=== PATIENT | female | born 1970 | race Caucasian/White ===

== ENCOUNTER 2025-08-13 07:55 | Outpatient (AMB) | payer OTHER, SELFPAY ==
--- OUTSIDE RECORDS SUMMARY | 2025-08-13 07:58 | XMS_ITS | Clinical Summary ---
Author Organization [facility] Address [address] [place] [address] Phone Care Team Providers Care Stone Engraver Name Role Phone MercedezJanki Primary Care Provider [phone] Allergies No known active allergies Medications citalopram (CeleXA) 10 mg tablet Take 1 tablet (10 mg total) by mouth 1 (one) time each day. 30 each 5 5 Active acetaminophen (Tylenol 8 Hour) 650 mg 8 hr tablet Take 1 tablet (650 mg total) by mouth every 8 (eight) hours if needed for mild pain. Do not crush, chew, or split. 30 tablet 5 10/03/19 26 Active diclofenac (VOLTAREN) 1 % topical gel Apply 4 g topically 4 (four) times a day. 500 g 1 5 Active losartan (Cozaar) 25 mg tablet Take 1 tablet (25 mg total) by mouth 1 (one) time each day. 90 each 1 5 10/03/19 26 Active cyanocobalamin (Vitamin B-12) 500 mcg tablet Take 1 tablet (500 mcg total) by mouth 1 (one) time each day. 90 each 1 5 10/03/19 26 Active Hospital, Clinic, or Other Facility Administered Medication Ordered Dose Route Frequency Start Date End Date Status lidocaine (PF) (XYLOCAINE-MPF) 1 % injection 0.5 mLIndications:Capsul itis of left foot .5 mL Once PRN Procedure 07/22/2025 07/22/2025 Ended triamcinolone acetonide (KENALOG-40) 40 mg/mL injection 40 mgIndications:Capsul itis of left foot 40 mg Once PRN Procedure 07/22/2025 07/22/2025 Ended Active Problems Problem Noted Date Diagnosed Date HTN (hypertension), benign 12/11/2024 Obesity (BMI 30-39.9) 12/11/2024 Gastroesophageal reflux disease 06/23/2020 Overview (11/17/2024): DX:Gastroesophageal reflux disease Backache 09/24/2013 Overview (11/17/2024): 1213-mri small left paramed l4-5 disc compressing left l5 nerve root.no central neuroforaminal stenosis Mild deg disc.seen by PVSS Anxiety 11/11/2009 Overview (11/17/2024): Takes occasional lorazepam; also on lexapro Depression 11/11/2009 Overview (11/17/2024): Takes lexapro Bunion 03/10/2007 Encounters Date Type Department Care Team Description 07/22/2025 3:00 PM EDT Office Visit Orthopedic Surgery - [place] [address] [phone] Christoph Harrison, DPM Pain in both feet (Primary Dx); Arthritis of both feet; Bunion, left; Capsulitis of left foot 07/07/2025 2:15 PM EDT Consult Orthopedic Surgery [facility] [address] [phone] Christoph Harrison, DPM Pain in both feet (Primary Dx); Lumbosacral radiculopathy; Arthritis of both feet; Bunion, left; Capsulitis of left foot from Last 3 Months Surgical History Surgery Date Site/Laterality Comments OTHER SURGICAL HISTORY PROCEDURE: ARTHROSCOPY PROCEDURE NEC; COMMENT: left knee - 2004; s/p fall, ACL and MCL CHOLECYSTECTOMY PROCEDURE: HISTORICAL CHOLECYSTECTOMY OTHER SURGICAL HISTORY 11/2013 PROCEDURE: DISKECTOMY LUMBAR ADDTNL SP; COMMENT: L4-5 micro diskectomy BUNIONECTOMY PROCEDURE: BUNION SURGERY, SIMPLE REMOVAL Medical History Medical History Date Comments Gastroesophageal reflux disease 06/23/2020 DX:Gastroesophageal reflux disease HTN (hypertension), benign 12/11/2024 Anxiety Depression Family History Medical History Relation Name Comments Breast cancer Mother dx age 70's, h ad lumpectomy and masectomy. Relation Name Status Comments Father Other adopted so no i seamus Mother Other Social History Tobacco Use Types Packs/Day Years Used Date Smoking Tobacco: Never Smokeless Tobacco: Never Alcohol Use Standard Drinks/Week Comments Yes 0 (1 standard drink = 0.6 oz pur e alcohol) Interpersonal Safety Answer Date Record ed Physical Abuse Unrecognized value 12/18/2024 Verbal Abuse Unrecognized value 12/18/2024 Comments No Sex and Gender Information Value Date Recorded Sex Assigned at Female 12/18/2024 11:19 AM EDT Legal Sex Female 1:35 AM EST Gender Identity Female 12/18/2024 11:19 AM EDT Sexual Orientation Straight 12/18/2024 11 :19 AM EDT Obstetrics History Last Filed Vital Signs Vital Sign Reading Time Taken Comments Blood Pressure 104/72 04/06/2025 12:54 PM EDT Pulse 68 04/06/2025 12:54 PM EDT Temperature 36.3 C (97.3 F) 12/18/2024 11:54 AM EDT Respiratory Rate 16 04/06/2025 12:54 PM EDT Oxygen Saturation 97% 12/18/2024 1:02 PM EDT Inhaled Oxygen Concentration - - Weight 96.6 kg (213 lb) 04/06/2025 12:54 PM EDT Height 170.2 cm (5' 7 ) 12/18/2024 11:54 AM EDT Body Mass Index 33.36 12/18/2024 11:54 AM EDT Plan of Treatment Upcoming Encounters Date Type Department Care Team (Late st Contact Info) Description 08/24/2025 9:15 AM EST Office Visit Orthopedic Surgery - [place] [address] [phone] Christoph Harrison, ERMA 175 [facility] [address] [place] [id number] Health Maintenance Due Date Last Done Comments DTaP,Tdap,and Td Vaccines (1 - Tdap) 1990 Hepatitis B Vaccines (1 of 3 - 19+ 3-dose series) 1990 Cervical Cancer Screening: Pap Smear 05/14/2015 05/14/2012, 05/14/2012 Pneumococcal Vaccine: 50+ Years (1 of 1 - PCV) 2021 Zoster Vaccines (1 of 2) 2021 HIV Screening 08/26/2022 Social Influencers of Health Screening 08/26/2022 Breast Cancer Screening 07/21/2023 07/21/2021 COVID-19 Vaccine ( season) 2025 01/28/2021, 12/27/2020 Influenza Vaccine (#1) 2025 Hypertension/CHF/CAD Annual BMP Blood Test 04/06/2026 04/06/2025, 12/11/2024, 07/10/2024, Additional history exists Cholesterol Screening (Lipid Panel) 04/06/2030 04/06/2025, 10/09/2023 Colorectal Cancer Screening: Colonoscopy 12/18/2034 12/18/2024 RSV Immunization Adult Patients (1 - 1-dose 75+ series) 2046 Hepatitis C Screening Completed 07/10/2024 Depression Screening Completed 12/10/2024 HIB Vaccines Aged Out No longer eligi ble based on patient's age to complete this topic HPV Vaccines Aged Out No longer eligi ble based on patient's age to complete this topic Hepatitis A Vaccines Aged Out No long er eligible based on patient's age to complete this topic IPV Vaccines Aged Out No longer eligi ble based on patient's age to complete this topic MMR Vaccines Aged Out No longer eligi ble based on patient's age to complete this topic Meningococcal ACWY Vaccine Aged Out N o longer eligible based on patient's age to complete this topic Meningococcal B Vaccine Aged Out No l onger eligible based on patient's age to complete this topic RSV Immunization Patients Under 20 months Aged Out No longer eligible based on patient's age to complete this topic Varicella Vaccines Aged Out No longer eligible based on patient's age to complete this topic Procedures Procedure Name Priority Date/Time Associated Diagnosis Comments INJECTION TENDON OR LIGAMENT Routine 07/22/2025 3:00 PM EDT Capsulitis of left foot INJECTION TENDON OR LIGAMENT Routine 07/07/2025 2:15 PM EDT Capsulitis of left foot COMPREHENSIVE METABOLIC PANEL Routine 04/06/2025 1:18 PM EDT HTN (hypertension), benign LIPID PANEL WITH REFLEX TO DIRECT LDL Routine 04/06/2025 1:18 PM EDT HTN (hypertension), benign COLONOSCOPY Routine 12/18/2024 12:41 PM EDT Colon cancer screening HEPATITIS C SCREENING Routine 07/10/2024 ZAN SCREENING DIGITAL Routine 07/21/2021 2:51 PM EDT Encounter for screening mammogram for malignant neoplasm of breast HPV Routine 05/14/2012 from Last 3 Months or Most Recently Relevant to Health Maintenance Results * Injection tendon or ligament (07/22/2025 3:00 PM EDT) Narrative Christoph Harrison DPM - 07/22/2025 3:00 PM EDT Christoph Harrison DPM 07/22/2025 5:42 PM Injection tendon or ligament Indications: pain Details: 25 G needle Medications: 0.5 mL lidocaine (PF) 1 %; 40 mg triamcinolone acetonide 40 mg/mL Informed Consent: Laterality: Left us Christoph Harrison DPM IN CLINIC/BEDSIDE ORDERABLE S Final Result * Injection tendon or ligament (07/07/2025 2:15 PM EDT) Narrative Christoph Harrison DPM - 07/07/2025 2:15 PM EDT Christoph Harrison DPM 07/07/2025 5:39 PM Injection tendon or ligament Indications: pain Details: 25 G needle Medications: 0.5 mL lidocaine (PF) 1 %; 40 mg triamcinolone acetonide 40 mg/mL Informed Consent: Laterality: Left us Christoph Harrison DPM IN CLINIC/BEDSIDE ORDERABLE S Final Result * Lipid panel with reflex to direct LDL (04/06/2025 1:18 PM EDT) Cholesterol 175 0 - 200 mg/dL LAB CHEMISTRY METHOD 04/06/2025 5:15 PM EDT [facility] Triglycerides 124 0 - 150 mg/dL LAB CHEMISTRY METHOD 04/06/2025 5:15 PM EDT [facility] HDL 50 >=40 mg/dL LAB CHEMISTRY METHOD 04/06/2025 5:15 PM EDT [facility] LDL Calculated 100 0 - 100 mg/dL LAB CHEMISTRY METHOD 04/06/2025 5:15 PM EDT [facility] VLDL Cholesterol Geoff 24.8 mg/dL LAB CHEMISTRY METHOD 04/06/2025 5:15 PM EDT [facility] Non HDL Chol. (LDL+VLDL) 125 <145 mg/dL LAB CHEMISTRY METHOD 04/06/2025 5:15 PM EDT [facility] Chol/HDL Ratio 3.5 0.0 - 4.4 LAB CHEMISTRY METHOD 04/06/2025 5:15 PM EDT [facility] Blood Venous blood specimen / Unknown Venipuncture / Unknown 04/06/2025 1:18 PM EDT 04/06/2025 1:18 PM EDT Marcos SCHROEDER LAB BLOOD ORDERABLES Fi nal Result [facility] [address] [place] [address], [place] [phone] * Comprehensive metabolic panel (04/06/2025 1:18 PM EDT) Sodium 139 133 - 145 mmol/L LAB CHEMISTRY METHOD 04/06/2025 5:15 PM EDT [facility] Potassium 4.1 3.5 - 5.5 mmol/L LAB CHEMISTRY METHOD 04/06/2025 5:15 PM [facility] Chloride 108 96 - 110 mmol/L LAB CHEMISTRY METHOD 04/06/2025 5:15 PM [facility] CO2 24 21 - 32 mmol/L LAB CHEMISTRY METHOD 04/06/2025 5:15 PM [facility] Anion Gap 7 3 - 11 LAB CHEMISTRY METHOD 04/06/2025 5:15 PM [facility] Glucose 76 70 - 100 mg/dL LAB CHEMISTRY METHOD 04/06/2025 5:15 PM [facility] BUN 9 5 - 25 mg/dL LAB CHEMISTRY METHOD 04/06/2025 5:15 PM [facility] Creatinine 0.66 0.50 - 1.10 mg/dL LAB CHEMISTRY METHOD 04/06/2025 5:15 PM [facility] eGFR 105 >=60 mL/min/1. 73m2 LAB CHEMISTRY METHOD 04/06/2025 5:15 PM [facility] Comment:Calculation based on the Chronic Kidney Disease Epidemiology Collaboration (CKD-EPI) equation refit without adjustment for race. BUN/Creatinine Ratio 13.6 LAB CHEMISTRY METHOD 04/06/2025 5:15 PM [facility] Calcium 9.0 8.5 - 10.5 mg/dL LAB CHEMISTRY METHOD 04/06/2025 5:15 PM [facility] AST (SGOT) 11 10 - 42 unit/L LAB CHEMISTRY METHOD 04/06/2025 5:15 PM [facility] ALT (SGPT) 19 10 - 60 unit/L LAB CHEMISTRY METHOD 04/06/2025 5:15 PM [facility] Alkaline Phosphatase 73 42 - 121 unit/L LAB CHEMISTRY METHOD 04/06/2025 5:15 PM [facility] Total Protein 7.2 6.0 - 8.0 g/dL LAB CHEMISTRY METHOD 04/06/2025 5:15 PM EDT [facility] Albumin 3.9 3.2 - 5.0 g/dL LAB CHEMISTRY METHOD 04/06/2025 5:15 PM EDT [facility] Total Bilirubin 0.6 0.0 - 1.4 mg/dL LAB CHEMISTRY METHOD 04/06/2025 5:15 PM EDT [facility] Blood Venous blood specimen / Unknown Venipuncture / Unknown 04/06/2025 1:18 PM EDT 04/06/2025 1:18 PM EDT us Marcos SCHROEDER LAB BLOOD ORDERABLES Fi nal Result [facility] [address] [place] [address], [place] [phone] * COLONOSCOPY Anesthesia - MAC; [facility] ENDOSCOPY (12/18/2024 12:41 PM EDT) Anatomical Region Laterality Modality Endoscopy 12/18/2024 12:2 1 PM EDT Impressions 12/18/2024 12:43 PM EDT - Hemorrhoids found on perianal exam. - The examination was otherwise normal on direct and retroflexion views. - No specimens collected. Recommendation: - - Discharge patient to home. - High fiber diet. - Continue present medications. - Await pathology results. - Repeat colonoscopy for surveillance based on pathology results. Narrative 12/18/2024 12:43 PM EDT [facility] GI Patient Name: Helen Esquivel Procedure Date: 12/18/2024 12:21 PM Date of : 1970 Age: 54 Gender: Female Note Status: Finalized Attending MD: Delores Tellez DO, [id number] Procedure Date No Time: 12/18/2024 Procedure: Colonoscopy Indications: Screening for colorectal malignant neoplasm Providers: Delores Tellez DO Referring MD: Janki Newsome DO Medicines: Monitored Anesthesia Care Complications: No immediate complications. Estimated blood loss: Minimal. Estimated Blood Loss: Estimated blood loss was minimal. Procedure: Pre-Anesthesia Assessment: - - Prior to the procedure, a History and Physical was performed, and patient medications and allergies were reviewed. The patient is competent. The risks and benefits of the procedure and the sedation options and risks were discussed with the patient. All questions were answered and informed consent was obtained. Patient identification and proposed procedure were verified by the physician, the nurse, the anesthesiologist, the well point pumping supervisor and the mold maintenance technician in the pre-procedure area in the endoscopy suite. Mental Status Examination: alert and oriented. Airway Examination: normal oropharyngeal airway and neck mobility. Respiratory Examination: clear to auscultation. CV Examination: normal. Prophylactic Antibiotics: The patient does not require prophylactic antibiotics. Prior Anticoagulants: The patient has taken no anticoagulant or antiplatelet agents. ASA Grade Assessment: II - A patient with severe systemic disease. After reviewing the risks and benefits, the patient was deemed in satisfactory condition to undergo the procedure. The anesthesia plan was to use monitored anesthesia care (MAC). Immediately prior to administration of medications, the patient was re-assessed for adequacy to receive sedatives. The heart rate, respiratory rate, oxygen saturations, blood pressure, adequacy of pulmonary ventilation, and response to care were monitored throughout the procedure. The physical status of the patient was re-assessed after the procedure. After I obtained informed consent, the scope was passed under direct vision. Throughout the procedure, the patient's blood pressure, pulse, and oxygen saturations were monitored continuously. The Olympus Pediatric Colonoscope was introduced through the anus and advanced to the cecum, identified by appendiceal orifice and ileocecal valve. The colonoscopy was performed without difficulty. The patient tolerated the procedure well. The quality of the bowel preparation was good. Findings: Hemorrhoids were found on perianal exam. The exam was otherwise without abnormality on direct and retroflexion views. Procedure Code(s): --- Professional --- G0121, Colorectal cancer screening; colonoscopy on individual not meeting criteria for high risk Diagnosis Code(s): --- Professional --- Z12.11, Encounter for screening for malignant neoplasm of colon K64.9, Unspecified hemorrhoids CPT copyright 2020 [employer]. All rights reserved. The codes documented in this report are preliminary and upon software development manager review may be revised to meet current compliance requirements. DELORES Tellez DO 12/18/2024 12:43:26 PM This report has been signed electronically.Delores Tellez DO Number of Addenda: 0 Note Initiated On: 12/18/2024 12:21 PM Scope Withdrawal Time: 0 hours 6 minutes 6 seconds Scope In: 12:31:03 PM Scope Out: 12:42:21 PM Endoscopy Department at [facility] - [address] [place] [phone] Procedure Note Delores Tellez DO - 12/18/2024 [facility] GI Patient Name: Helen Esquivel Procedure Date: 12/18/2024 12:21 PM Date of : 1970 Age: 54 Gender: Female Note Status: Finalized Attending MD: Delores Tellez DO, [id number] Procedure Date No Time: 12/18/2024 Procedure: Colonoscopy Indications: Screening for colorectal malignant neoplasm Providers: Delores Tellez DO Referring MD: Janki Newsome DO Medicines: Monitored Anesthesia Care Complications: No immediate complications. Estimated blood loss: Minimal. Estimated Blood Loss: Estimated blood loss was minimal. Procedure: Pre-Anesthesia Assessment: - - Prior to the procedure, a History and Physicalwas performed, and patient medications and allergieswere reviewed. The patient is competent. The risks and benefits of the procedure and the sedation optionsand risks were discussed with the patient. Allquestions were answered and informed consent was obtained. Patient identification and proposed procedure were verified by the physician, the nurse, the anesthesiologist, the well point pumping supervisor and thetechnician in the pre-procedure area in the endoscopy suite. Mental Status Examination: alert and oriented.Airway Examination: normal oropharyngeal airway and neck mobility. Respiratory Examination: clear to auscultation. CV Examination: normal. Prophylactic Antibiotics: The patient does not requireprophylactic antibiotics. Prior Anticoagulants: The patient has taken no anticoagulant or antiplatelet agents. ASA Grade Assessment: II - A patient with severesystemic disease. After reviewing the risks and benefits,the patient was deemed in satisfactory condition to undergo the procedure. The anesthesia plan was touse monitored anesthesia care (MAC). Immediately priorto administration of medications, the patient was re-assessed for adequacy to receive sedatives. The heart rate, respiratory rate, oxygen saturations, blood pressure, adequacy of pulmonary ventilation,and response to care were monitored throughout the procedure. The physical status of the patient was re-assessed after the procedure. After I obtained informed consent, the scope was passed under direct vision. Throughout theprocedure, the patient's blood pressure, pulse, and oxygen saturations were monitored continuously. TheOlympus Pediatric Colonoscope was introduced through theanus and advanced to the cecum, identified byappendiceal orifice and ileocecal valve. The colonoscopy was performed without difficulty. The patient tolerated the procedure well. The quality of the bowel preparation was good. Findings: Hemorrhoids were found on perianal exam. The exam was otherwise without abnormality ondirect and retroflexion views. Procedure Code(s): --- Professional --- G0121, Colorectal cancer screening; colonoscopy on individual not meeting criteria for high risk Diagnosis Code(s): --- Professional --- Z12.11, Encounter for screening for malignantneoplasm of colon K64.9, Unspecified hemorrhoids CPT copyright 2020 [employer]. All rights reserved. The codes documented in this report are preliminary and upon software development manager reviewmay be revised to meet current compliance requirements. DELORES Tellez DO 12/18/2024 12:43:26 PM This report has been signed electronically.Delores Tellez DO Number of Addenda: 0 Note Initiated On: 12/18/2024 12:21 PM Scope Withdrawal Time: 0 hours 6 minutes 6 seconds Scope In: 12:31:03 PM Scope Out: 12:42:21 PM Endoscopy Department at [facility] - [address] [place] [phone] IMPRESSION: - Hemorrhoids found on perianal exam. - The examination was otherwise normal on directand retroflexion views. - No specimens collected. Recommendation: - - Discharge patient to home. - High fiber diet. - Continue present medications. - Await pathology results. - Repeat colonoscopy for surveillance based on pathology results. Delores Tellez DO GI~PROCEDURE ORDERABLES Final Re sult * Hepatitis C Screening (07/10/2024) Hepatitis C Screening Abstracted Historical Provider HEALTH MAINTENANCE Final Result * ZAN SCREENING DIGITAL (07/21/2021 2:51 PM EDT) Anatomical Region Laterality Modality Mammography 07/21/2021 2:09 PM EDT Narrative 07/21/2021 2:51 PM EDT [facility] Diagnostic Imaging Department [address] [place] [id number] Patient: HELEN ESQUIVEL /Age/Sex: 1970 - 50 - F Unit#: [id number] Location/Status: SPDIMA/REG CLI Mnemonic/Ordering Site: [facility] Ordering Physician: CHALO RODRÍGUEZ MD Zan Screening Digital - 07/21/21 - 143 EXAM: [facility] Screening Digital EXAM DATE AND TIME: 07/21/2021 2:34 PM HISTORY: Screening. Mother had breast carcinoma at age 50. COMPARISON: 07/29/13, 07/15/13, 06/25/12, 04/27/11 outside studies. TECHNIQUE: CC and MLO views of both breasts were obtained using full field digital mammography. Bilateral digital breast tomosynthesis was performed in the MLO projection. Computer aided detection with the MC2 7.2-H was employed. TISSUE DENSITY: c. The breasts are heterogeneously dense, which may obscure small masses. FINDINGS: A 10 mm circumscribed nodule is present in the 12:00 retroareolar area of the right breast, without associated microcalcifications. Targeted ultrasound is recommended for further assessment. No grouped microcalcifications or areas of architectural distortion are seen. The skin and vascularity are unremarkable. IMPRESSION: 1. 10 mm retroareolar nodule in the right breast, for which targeted ultrasound is recommended. The patient will be called back. 2. Stable mammographic appearance of the left breast. No evidence of malignancy is seen. BI-RADS: Category 0: Incomplete - Need Additional Imaging Evaluation RECOMMENDATION(S): 1: Ultrasound follow-up RIGHT [id number], [id number], [id number] Dictating Physician: MARLENE GONZALEZ MD Electronically Signed by: MARLENE GONZALEZ MD Dic Date/Time: 07/21/21 1449 Sign date/Time: 07/21/21 1451 Procedure Note Marlene Gonzalez MD - 09/12/2022 [facility] Diagnostic Imaging Department [address] [place] [address] Patient: HELEN ESQUIVEL /Age/Sex: 1970 - 50 - F Unit#: [id number] Location/Status: [facility] Mnemonic/Ordering Site: [facility] Ordering Physician: CHALO RODRÍGUEZ MD [facility] Screening Digital - 07/21/21 - 1432 EXAM: [facility] Screening Digital EXAM DATE AND TIME: 07/21/2021 2:34 PM HISTORY: Screening. Mother had breast carcinoma at age 50. COMPARISON: 07/29/13, 07/15/13, 06/25/12, 04/27/11 outside studies. TECHNIQUE: CC and MLO views of both breasts were obtained using fullfield digital mammography. Bilateral digital breast tomosynthesis was performedin the MLO projection. Computer aided detection with the MC2 7.2-Hwas employed. TISSUE DENSITY: c. The breasts are heterogeneously dense, which mayobscure small masses. FINDINGS: A 10 mm circumscribed nodule is present in the 12:00 retroareolar area ofthe right breast, without associated microcalcifications. Targeted ultrasoundis recommended for further assessment. No grouped microcalcifications or areas of architectural distortion areseen. The skin and vascularity are unremarkable. IMPRESSION: 1. 10 mm retroareolar nodule in the right breast, for which targetedultrasound is recommended. The patient will be called back. 2. Stable mammographic appearance of the left breast. No evidence ofmalignancy is seen. BI-RADS: Category 0: Incomplete - Need Additional Imaging Evaluation RECOMMENDATION(S): 1: Ultrasound follow-up RIGHT [id number], [id number], [id number] Dictating Physician: MARLENE GONZALEZ MD Electronically Signed by: MARLENE GONZALEZ MD Dic Date/Time: 07/21/21 1449 Sign date/Time: 07/21/21 1451 Chalo Rodríguez MD IMG BI PROCEDURES Final Result * Cervical Cancer Screening: HPV (05/14/2012) Cervical Cancer Screening: HPV No Interpretation , Abstracted Historical Provider HEALTH MAINTENANCE Final Result from Last 3 Months or Most Recently Relevant to Health Maintenance Insurance [facility] Care Teams Stone Engraver Relationship Specialty Start Date End Date Janki Newsome DO [address] [facility] [place] [address] PCP - General 07/10/23
--- NOTE | 2025-08-13 13:20 | A.OFFVIS_ITS ---
VS Expanded 08/13/25 13:33 Height 5 ft 7 in Weight 213 lb 8 oz BMI 33.4 Body Fat % 44.7 Body Fat Mass 95.4 Fat Free Mass 118.2 Visceral Fat Rating 11 Body Water % 39.3 Body Water Mass 84 Basal Metabolic Rate/Score 1,652 Intake Visit Reasons: [employer] [facility] BMI 33.5 Allergies No Known Allergies Allergy (Verified 08/13/25 13:21) Medication List - Last Reconciled 08/13/25 by Rudy Flower MD [b12 PO] [Fluoxetine PO] [losartan PO] HPI HPI [employer] [facility] BMI 33.5: Details: Start time: 1.15pm, End time: 1.47pm ?I spent 27 minutes speaking with the patient on the phone plus an additional 5 minutes reviewing and updating records for a total of 32 minutes HPI Comments Details: Previous weight loss efforts (self diets and exercise) Wakes up: 6am, Sleeps: 10pm Breakfast: skips Lunch: 12pm-1pm (ham sandwich, grapes) Dinner: 6-7pm (meat, salad, rice or potatoes) Snacks: 9am (grapes), 4pm (crackers with cheese) Exercise: none Beverages: Coffee: none, Tea: none, Soda: diet coke or [place] water, Juice: none, ETOH: 1/wk (1 glass) PFSH Medical History (Updated 08/13/25 @ 13:38 by Rudy Flower MD) Anxiety Depression Hypertension BMI 33.0-33.9,adult Obesity Surgical History (Updated 08/13/25 @ 13:23 by Rudy Flower MD) History of laparoscopic cholecystectomy Hx of cholecystectomy Hx of foot surgery Hx of knee surgery History of back surgery Family History (Updated 06/04/25 @ 14:03 by Blanca West CMA) Mother Breast cancer Father No problems noted. Daughter No problems noted. Social History (Updated 06/04/25 @ 14:03 by Blanca West CMA) Alcohol intake: current Alcohol intake frequency: holidays/special occasions only Patient Tobacco Use Status: Never used Tobacco Telehealth Telehealth Telehealth Platform: Telephone Location of provider rendering services: practice address Location of patient: address on file Patient Identification confirmed using: Name, : Yes Telehealth method: voice only Patient verbally consented to treatment: Yes Patient verbally consented to billing insurance company: Yes Patient informed of any privacy concerns related to visit: Yes Minutes spent on Phone/Video with Pt.: 32 Assessment & Plan Assessment & Plan (1) Obesity: Code(s): E66.9 - Obesity, unspecified Category: Medical Qualifiers: Obesity type: due to excess calories Obesity classification: adult class 1 (BMI 30 - 34.9) Serious obesity comorbidity presence: with serious comorbidity Body mass index: BMI 33.0-33.9 Qualified Code(s): E66.811 - Obesity, class 1; E66.09 - Other obesity due to excess calories; Z68.33 - Body mass index [BMI] 33.0-33.9, adult Plan: 1. Nutritional counseling. Start with one CELEBRATE REBUILD protein (buy online with the link I gave you) shake (HALF scoop in 8oz low fat unsweetened almond milk) at 7am-9am, 1 protein bar (CELEBRATE protein bars, buy at [facility] [id number] [facility], buy online with the link I gave you) ) at 10am-12pm, another CELEBRATE REBUILD protein shake (HALF scoop in 8oz low fat unsweetened almond milk each) at 1pm-3pm, another Celebrate protein bar at 4pm-6pm, dinner at 7pm (8 forks of protein and 8 forks of salad/vegetables) AND another HALF protein bar after dinner at 9pm-10pm. So you do 2 protein shakes, 2.5 protein bars and one meal per day. With this meal plan you will lose more weight and better quality weight loss with greater fat loss while you are preserving your muscle mass. Meal to include lean meat (beef, fish, pork, turkey, chicken), or mexican yogurt, or egg whites, or beans with a salad with olive oil and fruits (berries, pears, apples, kiwi). Avoid salt, breads, potatoes, rice, pasta, desserts. 3. Each shake would be drunk slowly, like coffee in a period of 2 hours. 4. Cut each bar in 4 pieces and eat each piece in 30min ?to make each bar last 2 hours. 5. I emphasized the importance of measuring accurately the food portion and me asure it when serving the food in plate 6. The meal portions include 8 full-size forks of meat and 8 full-size forks of salad. You always eat the meat portion but you can replace up to 4 forks for sa lad/vegetables with rice, potatoes or pasta, or a fruit ?if you like. The less you do it the better weight loss will be. 7. One full-size fork is what it can be scooped on the fork without falling as loree and not what can be bit with the fork. Use regular forks like those you find in a typical restaurant. 8.? Please send me weight measurements from the body composition scale you purchased. 9. I would not recommend walking as an effective method of exercise for your situation. 10. The best choice would be to purchase a stationary bike at home that can track calories. Let me know if you do so I can give you an exercise plan. 11.?It is important of avoiding and for at least 18 months postoperatively and has been discussed at the infosession. 12. Goal is to lose at least 1.5-2lbs per week 13. Goal to lose at least 10% of your weight, which is about 23lbs. Minimum weight goal: 190lbs 14. Please follow the diet plan exactly without any change. If you don't like something about the plan or you feel hungry you need to communicate with me so I can help you revise the plan. You should not change the plan yourself 15. Start the Mounjaro when you get your body composition scale once a week. We discussed the potential side effects of Mounjaro such as nausea, vomiting, abdominal pain, diarrhea and constipation and you will need to contact me if any of these symptoms occur or for any other new symptom you may experience. Medications: New tirzepatide (weight loss) (Zepbound) 2.5 mg (0.5 mL) subcut QWEEK 2 mL 0RF 4 weeks E66.9 - Obesity, unspecified, I10 - Essential (primary) hypertension, Z68.33 - Body mass index [BMI] 33.0-33.9, adult
[2025-08-13 13:33] VITALS: BMI 33.4
== END 2025-08-13 13:48 | disposition home or self-care (01) ==
LOC: HO.HBS 07:55
PROVIDERS: PCP Physician Assistant; Visit Provider Surgery
DX: E66.811 Obesity, class 1 (principal); E66.09 Other obesity due to excess calories; Z68.33 Body mass index [BMI] 33.0-33.9, adult
CPT/HCPCS: 99203